=== PATIENT | male | born 1955 | race Caucasian/White ===

== ENCOUNTER 2020-11-22 03:29 | Inpatient (IN) | payer MEDICARE, BC ==
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
[2020-11-22 08:00] VITALS: BP 109/79
--- NOTE | 2020-11-22 08:00 | NUR ---
REC'D PT SITING IN RECLINING CHAIR. AWAKE AND ALERT TO PERSON ONLY. CALM AND COOPERATIVE WITH ASSESSMENT AT THIS TIME. PRESCRIBED MEDS PROVIDED ORDERED. MED COMPLIANT. PT CAN BECOME AGGRESSIVE WITH STAFF DURING CARE. REDIRECT AND REORIENT NEEDED. FALL PRECAUTIONS IN PLACE. WILL CPOC.
[2020-11-22 09:36] LABS: BILIRUBIN NEGATIVE (NEGATIVE); KETONE NEGATIVE (NEGATIVE); NITRITE NEGATIVE (NEGATIVE); UROBILINOGEN NORMAL mg/dL (< 2)
[2020-11-22 09:37] LABS: BACTERIA FEW HPF (NONE SEEN); SQUAMOUS EPITHELIAL 0-5 HPF (0-4); WHITE CELLS - URINE 0-5 HPF (0-1)
[2020-11-22 09:41] LABS: BASOPHILS 0.6 % (0-2); EOSINOPHILS 1.1 % (0-7); HEMATOCRIT 48.3 % (42.0-54.0); HEMOGLOBIN 15.9 g/dL (13.5-17.5); LYMPHOCYTES 15.1 % (15-50); MCH 29.4 pg (26.0-34.0); MCV 89.2 fL (80.0-100.0); MEAN PLATELET VOLUME 6.8 fL (7.4-10.4); MONOCYTES 5.7 % (2-11); NEUTROPHILS 77.5 % (40-80); PLATELET COUNT 248 10x3/uL (130-400); RBC 5.42 10x6/uL (4.20-6.10); RDW 13.5 % (11.5-14.5); WBC 10.7 10x3/uL (4.8-10.8)
[2020-11-22 09:44] LABS: ALBUMIN 3.7 g/dL (3.4-5.0); ALKALINE PHOSPHATASE 87 U/L (30-120); ALT (SGPT) 32 U/L (10-68); BILIRUBIN - TOTAL 0.49 mg/dL (0.2-1.3); CALC OSMOLALITY 286 mosm/kg (275-300); CARBON DIOXIDE 27.4 mmol/L (21.0-32.0); CHLORIDE - SERUM 104 mmol/L (98-107); CHOL - HDL RATIO 5.3 ratio (2.3-4.9); CHOLESTEROL, TOTAL 222 mg/dL (0-200); CREATININE - SERUM 1.2 mg/dL (0.6-1.3); GLUCOSE 133 mg/dL (74-106); HDL CHOLESTEROL 42 mg/dL (32-96); LDL CHOLESTEROL 146 mg/dL (0-100); LDL-HDL RATIO 3.5 ratio (1.5-3.5); POTASSIUM - SERUM 3.8 mmol/L (3.5-5.1); PROTEIN - SERUM 7.7 g/dL (6.4-8.2); SODIUM 142 mmol/L (136-145); THYROID STIMULATING HORMONE 6.76 uIU/mL (0.36-3.74); TRIGLYCERIDE 174 mg/dL (30-200); UREA NITROGEN 18 mg/dL (7-18); eGFR NON AFRICAN AMERICAN 64 mL/min (90-120)
[2020-11-22] MEDS ORDERED: DONEPEZIL HCL10 MG PO (10:17)
[2020-11-22] MEDS ORDERED: ELIQUIS2.5 MG PO (10:17)
[2020-11-22] MEDS ORDERED: ZOLOFT100 MG PO (10:17)
[2020-11-22] MEDS ORDERED: FLOMAX0.4 MG PO (10:18)
[2020-11-22] MEDS ORDERED: NORVASC2.5 MG PO (10:18)
[2020-11-22] MEDS ORDERED: XANAX0.5 MG PO (10:18)
[2020-11-22] MEDS ORDERED: KEPPRA250 MG PO (10:21)
[2020-11-22] MEDS ORDERED: MACROBID100 MG PO (10:22)
[2020-11-22 15:59] VITALS: BMI 35.4
[2020-11-22 18:13] VITALS: BP 109/79; Wt 111.4 kg
[2020-11-22 20:00] VITALS: BP 133/94
--- NOTE | 2020-11-22 20:16 | NUR ---
RECEIVED IN HALLWAY. SITTING IN A CHAIR WITH PEERS AT HIS SIDE. RESISTANT TO CARE AT TIMES. REFUSED MOST OF HIS VITAL SIGNS. NO SIGNS OF AGGRESSION. REDIRECT AND REORIENT NEEDED. CONTINUES TO SIT IN HALLWAY WITH PEERS. CONTINUE PLAN OF CARE.
[2020-11-23 07:15] LABS: RAPID PLASMA REAGIN Non Reactive (Non Reactive)
--- NOTE | 2020-11-23 08:00 | NUR ---
REC'D SITTING IN RECLINING CHAIR. AWAKE AND ALERT TO PERSON ONLY. CALM AND COOPERATIVE WITH ASSESSMENT, PRESCRIBED MEDS PROVIDED ORDERED. MED COMPLAINT. PT CAN BECOME AGGRESSIVE WITH ALD'S. REDIRECT AND REORIENT NEEDED. FALL PRECAUTIONS IN PLACE FOR SAFETY. WILL CPOC.
[2020-11-23 08:02] VITALS: BP 117/66
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
[2020-11-23 14:13] LABS: T4 THYROXIN - FREE 1.2 ng/dL (0.76-1.46)
[2020-11-23 20:00] VITALS: BP 140/75
--- NOTE | 2020-11-23 20:12 | NUR ---
RECEIVED IN DAYROOM. SITTING IN A CHAIR WITH PEERS AT HIS SIDE. CALM AND COOPERATIVE WITH CARE AND ASSESSMENT. VERY CONFUSED NO SIGNS OF AGGRESSION. REDIRECT AND REORIENT NEEDED. CONTINUES TO SIT CALMLY IN DAYROOM. CONTINUE PLAN OF CARE.
[2020-11-24 08:00] VITALS: BP 114/82
--- NOTE | 2020-11-24 08:36 | NUR ---
REC'D PT SITTING IN RECLINING CHAIR BY THE NURSES STATION. AWAKE AND ALERT TO PERSON ONLY. CALM AND COOPERATIVE WITH ASSESSMENT AT THSI TIME. CONFUSION NOTED. PT IS RESTLESS AT TIMES. PT CAN BECOME AGGRESSIVE WITH CARE. PT ATTEMPTS TO STAND UNASSISTED AT TIMES. REDIRECT AND REORIENT NEEDED. FALL PRECAUTIONS IN PLACE. WILL CPOC.
--- NOTE | 2020-11-24 14:02 | PN ---
PATIENT:SOPHIA RIVERA MEDICAL RECORD: [id number] LOCATION:KATHRYN Llamas112 ADMISSION DATE: 11/22/20 PROGRESS NOTE DATE OF SERVICE: 11/23/2020 SUBJECTIVE: The patient's case was discussed with staff. He has no new complaint. OBJECTIVE: The patient is disorganized with poor insight about his situation. He is only oriented to person and has not been aggressive today. ASSESSMENT: Dementia. PLAN: Brief supportive and educational interventions were made. The patient will be maintained on current medications, which I have reviewed. In addition to these medications, he will be treated with Namenda at a dose of 5 mg twice daily. TRANSINT:[id number] Voice Confirmation ID: [id number] DOCUMENT ID: [id number] TALHA MCKINLEY MD at 1402 CC: [id number] DICTATION DATE: 11/23/20 1552 STEEPLE JACK: 11/24/20 0038 ADM IN [place] [id number] [place] [id number]
--- NOTE | 2020-11-24 14:48 | NUR ---
Nutrition Re-Assessment Diet: Regular PO intake: ~73% average x last 6 meals Last BM: 11/24/20 Wt: 254.6# (11/22/20) Meds noted: probiotics, macrobid Labs reviewed Patient continues to appear to not be at nutrition risk at this time. Please consult dietitian if further MNT is medically indicated and/or desired by MD. Recommendations/Interventions: -Recommend continue current diet. Will continue to honor food preferences. -RD will continue to monitor PO intake and wt trend. -RD will follow-up within 7 days.
[2020-11-24 20:00] VITALS: BP 121/79
--- NOTE | 2020-11-24 21:44 | NUR ---
PT IS ALERT AND ORIENTED TO SELF ONLY. RECEIVED IN THE HALLWAY SITTING IN A CHAIR. VERY SOFT SPOKEN. DIFFICULTY FOLLOWING SIMPLE COMMANDS. COMPLIANT WITH ALL MEDICATIONS. NO AGGRESSION NOTED. ASSISTED TO BED. MONITOR FOR SAFETY.
--- NOTE | 2020-11-25 15:17 | NUR ---
Rec'd patient this am lying in bed. He is a/o but very confused to person. He is med compliant and took meds whole. He has sat and stared at the wall or the floor. He appears to be having active hallucinations or delusions. He does occ. attempt to converse with the other patients. He is directable and redirectiable so far this shift. He has some agitation in he feels pressure with completing an ADL or completeing a task.
--- NOTE | 2020-11-25 19:52 | NUR ---
RECEIVED WALKING IN HALWAY. VERY CONFUSED. DIFFICULT WITH DIRECTION. CALM AND COOPERATIVE WITH CARE AND ASSESSMENT. NO SIGNS OF AGGRESSION. REDIERCT AND REORIENT NEEDED. SITTING CALMLY IN HALLWAY AT THIS TIME. CONTINUE PLAN OF CARE.
[2020-11-25 20:00] VITALS: BP 113/77
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
--- NOTE | 2020-11-26 17:56 | NUR ---
PT CONTS TO PACE. ALERT TO SELF ONLY. CONFUSED. NO INSIGHT NOTED. REDIRECT AND REORIENT NEEDED. PT IS DIFFICULT TO REDIRECT. PT BECOMES AGITATED QUICKLY WITH ADLS. NO COMBATIVE BEHAVIOR NOTED. PT DOES NOT UNDERSTAND SIMPLE COMMANDS DUE TO LOW FUNCTIONING ABILITY. COMPLIANT WITH MEDS, VITALS AND ASSESSMENTS. CAN NOT MAKE NEEDS KNOWN. WANDERS. WILL CONT PLAN OF CARE.
--- NOTE | 2020-11-26 19:32 | NUR ---
RECEIVED IN HALLWAY. PACING UNIT. VERY CONFUSED. CALM AND COOPERATIVE WITH CARE AND ASSESSMENT. NO SIGNS OF AGGRESSION. DIFFICULT TO REDIRECT . CAN NOT UNDERSTAND SIMPLE COMMANDS. REDIRECT AND REORIENT NEEDED. CONTINUES TO WALK AROUND IN HALLWAY. CONTINUE PLAN OF CARE.
[2020-11-26 20:00] VITALS: BP 107/69
[2020-11-27 08:00] VITALS: BP 109/67
--- NOTE | 2020-11-27 10:03 | NUR ---
NURSE SPOKE WITH AT THIS TIME. PASSCODE GIVEN. NURSE EDUCATED ON NEW MEDICATION ORDERED. GEORGI FOR BEHAVIORS. SHE TOOK DOWN THE NAME OF MEDICATIONS. SHE ASKED IF STAFF WAS ABLE TO KEEP HIM DRY AT THIS TIME. NURSE STATED STAFF DOES Q 2 HR TOILETING WITH PT AND TAKE APPORACH SLOW. SHE STATED DURING VISITATION ON SUNDAY HE TOLD HER HAD TO GO TO THE RESTROOM BUT IT IS NOT OFTEN HE KNOWS. SO SHE WAS TAKING HIM AT HOME EVERY COUPLE OF HOURS. SHE STATED SHE DID NOT THINK SHE WOULD BE ABLE TO MAKE VISITATION TODAY AND TOMORROW HIS SISTER WAS GOING TO VISIT. IT WAS [address] AND SHE HAS TO GO TO [place] SUNDAY TO VISIT HER SON. SO SHE HAS ALOT ON HER PLATE. NURSE VERBALIZIED UNDERSTANDING. SHE STATED SHE WOULD CALL TO CHECK ON HIM AND TAKE GOOD CARE OF HIM. NURSE THANKED HER AND VOICED UNDERSTANDING.
--- NOTE | 2020-11-27 14:23 | NUR ---
pt paces. confused. alert to self only. difficulty to redirect. aggressive with care. labile moods noted. compliant with crushed meds, vitals and assessments. staff approches slowly adls. can not make needs known. cont to redirect pts behavior. will cont plan of care.
--- NOTE | 2020-11-27 14:49 | NUR ---
AGGRESSIVE WITH CARE, THREATENING HARM TO STAFF. TEARFULNESS AND INAPPROPRIATE LAUGHING NOTED, HALDOL 2 MG AND ATIVAN 0.5 MG ADMIN PO PER ORDERS.
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
[2020-11-27 20:23] VITALS: BP 139/91
--- NOTE | 2020-11-27 20:26 | NUR ---
prn semi-effective at this time.
--- NOTE | 2020-11-27 20:27 | NUR ---
pt pacing at this time. no agressive behaviors noted at this time. calm and pacing. wanders, labile. confused. alert to self only. difficult to redirect. pt does not understand verbal redirection. use hand ques to redirect pt. compliant with meds, vitals and assessments. will cont plan of care.
[2020-11-28 08:00] VITALS: BP 119/80
--- NOTE | 2020-11-28 08:12 | NUR ---
REC'D PT SITTING IN HALLWAY BY NURSES STATION. AWAKE AND ALERT TO PERSON ONLY. CALM AND COOEPRATIVE WITH ASSESSMENT AT THIS TIME. NO AGGRESSION NOTED. REDIRECT AND REORIENT NEEDED. PT IS CONFUSED AND WANDERS AT TIMES. PT HAS POOR REDIRECTION AT TIMES. PT CAN BECOME AGGRESSIVE WITH STAFF DURING CARE. FALL PRECAUTIONS IN PLACE. WILL CPOC.
--- NOTE | 2020-11-28 20:09 | NUR ---
RECEIVED IN HALLWAY. SITTING IN A RECLINER WITH PEERS AT HIS SIDE. VERY CONFUSED. CALM AND COOPERATIVE WITH CARE AND ASSESSMENT. DIFFICULT UNDERSTANDING SIMPLE DIRECTIONS. NO SIGNS OF AGGRESSION. REDIRECT AND REORIENT NEEDED. CONTINUE PLAN OF CARE.
[2020-11-28 20:36] VITALS: BP 105/66
[2020-11-29 08:00] VITALS: BP 140/82
--- NOTE | 2020-11-29 08:42 | NUR ---
REC'D PT SITTING IN HALLWAY IN CHAIR BY THE NURSES STATION. AWAKE AND ALERT TO PERSON ONLY. CALM AND COOPERATIVE WITH ASSESSMENT AT THIS TIME. PT IS QUIET. PT CAN BE SOCIAL WITH PEERS AT TIMES. PT MOOD IS PLEASANT. PT HAS LITTLE TO NO INSIGHT HIS SITUATION AT THIS TIME. REDIRECT AND REORIENT NEEDED. PT CAN BECOME AGITATED WITH REDIRECTION AND CARE. FALL PRECAUTION IN PLACE FOR SAFETY. WILL CPOC.
--- NOTE | 2020-11-29 15:46 | PN ---
PATIENT:SOPHIA RIVERA MEDICAL RECORD: [id number] LOCATION:[facility] Llamas112 ADMISSION DATE: 11/22/20 PROGRESS NOTE DATE OF SERVICE: 11/24/2020 This is an entry that is late. I neglected to dictate on this patient for November 24, so this dictation is for November 24. SUBJECTIVE: The patient's case was discussed with staff. He has no new complaint. OBJECTIVE: The patient is only oriented to person. He has had no hallucinations. He is eating and sleeping reasonably well. ASSESSMENT: Dementia. PLAN: Current medicines and therapies have been reviewed and will be maintained. Supportive and educational interventions were made. TRANSINT:[id number] Voice Confirmation ID: [id number] DOCUMENT ID: [id number] TALHA MCKINLEY MD at 1546 CC: [id number] DICTATION DATE: 11/25/201723 OB GYN: 11/25/20 191 ADM IN [facility] [address] [place] [address]
--- NOTE | 2020-11-29 15:46 | PN ---
PATIENT:SOPHIA RIVERA MEDICAL RECORD: [id number] LOCATION:[facility] Llamas112 ADMISSION DATE: 11/22/20 PROGRESS NOTE DATE OF SERVICE: 11/25/2020 SUBJECTIVE: The patient's case was discussed with staff. He has no new complaint. OBJECTIVE: The patient has shown significant improvement from admission. He is sleeping adequately and eating reasonably well. He is probably at or close to his baseline level of functioning. There has, however, been some moderate agitation when personal care is performed, but I am not going to medicate this. ASSESSMENT: Dementia. PLAN: Current medicines will be maintained. Unfortunately, this patient's dementia is advanced and this is particularly unfortunate given the fact that he is only 65 years old. TRANSINT:[id number] Voice Confirmation ID: [id number] DOCUMENT ID: [id number] TALHA MCKINLEY MD at 1546 CC: [id number] DICTATION DATE: 11/25/20 1726 DIRECTOR REGULATORY AGENCY: 11/25/20 1920 ADM IN [place] [id number] [place] [address]
[2020-11-29 20:00] VITALS: BP 97/64
--- NOTE | 2020-11-29 20:47 | NUR ---
RECEIVED IN DAYROOM. SITTING IN A CHAIR WITH PEERS AT HIS SIDE. VERY CONFUSED. RESISTANT TO CARE AT TIMES. NO SIGNS OF AGGRESSION. REDIRECT AND REORIENT NEEDED. SITTING CALMLY IN HALLWAY AT THIS TIME.
[2020-11-30 08:00] VITALS: BP 129/77
--- NOTE | 2020-11-30 14:41 | PN ---
PATIENT:SOPHIA RIVERA MEDICAL RECORD: [id number] LOCATION:[facility] Llamas112 ADMISSION DATE: 11/22/20 PROGRESS NOTE DATE OF SERVICE: 11/29/2020 SUBJECTIVE: The patient's case was discussed with staff. He has no new complaint. OBJECTIVE: The patient has limited insight about his situation. He is not eating well. ASSESSMENT: Dementia. PLAN: The patient is only oriented to person. His dementia is advanced and I am going to prescribe Megace to assist with his appetite stimulation. TRANSINT:[id number] Voice Confirmation ID: [id number] DOCUMENT ID: [id number] TALHA MCKINLEY MD at 1441 CC: [id number] DICTATION DATE: 11/29/20 170 AUTOMATIC PROFILE SANDER OPERATOR: 11/29/20 2320 ADM IN [place] [id number] [place] [address]
--- NOTE | 2020-11-30 16:00 | NUR ---
mesh worker spoke to patient's , Bree, to discuss referrals and needing to be made for patient. mesh worker stated ALEXANDRA paperwork was done and sent off to the state. mesh worker sent out referrals already to [facility] and rehab, they declined patient. mesh worker also sent referral per request of patient's to [facility] and rehab. Bree stated her first choice would be [facility] and referral was sent today. mesh worker answer questions about Medicaid and finances while stating the long term financial analysis manager will help her with financials. Bree voiced no other needs at this time.
--- NOTE | 2020-11-30 19:38 | NUR ---
RECEIVED IN HALLWAY OUTSIDE OF NURSES STATION. VERY CONFUSED. DIFFICULT WITH SIMPLE INSTRUCTIONS. CALM AND COOPERATIVE WITH CARE AND ASSESSMENT. NO SIGNS OF AGGRESSION. REDIRECT AND REORIENT NEEDED. CONTINUES TO SIT CALMLY IN HALLWAY. CONTINUE PLAN OF CARE.
[2020-11-30 20:00] VITALS: BP 126/62
[2020-12-01 08:00] VITALS: BP 96/54
--- NOTE | 2020-12-01 09:00 | NUR ---
STAFF 3X ASSIST PT OUT OF BED AT THIS TIME. STAFF SLOW APPROACH TO AVOID AGITATION WITH PERICARE. PT DOES NOT UNDERSTAND VERBAL INSTRUCTIONS. PT QUICKLY BECOMES ANGRY WTITH REDIRECTION IF NOT DONE SLOWLY. PT IS CONFUSED AND ALERT TO SELF ONLY. PT HAS NO INSIGHT NOTED. VERY POOR REDIRECTION. COMPLIANT WITH MEDS VITALS AND ASSESSMENTS. LOW COGNITIVE UNDERSTANDING NOTED. AMBULATES WITH ENCOURAGEMENT. CHAIR ALARM IN PLACE AND ACTIVE. WILL CONT PLAN OF CARE.
--- NOTE | 2020-12-01 15:35 | PN ---
PATIENT:SOPHIA RIVERA MEDICAL RECORD: [id number] LOCATION:[facility] Llamas112 ADMISSION DATE: 11/22/20 PROGRESS NOTE DATE OF SERVICE: 11/30/2020 SUBJECTIVE: The patient's case was discussed with staff. He has no new complaint. OBJECTIVE: The patient is in good behavioral control with limited insight about his situation. He tolerates his medicines well. ASSESSMENT: Dementia. PLAN: Current medicines have been reviewed and will be maintained. The patient's dementia is very advanced. He has responded well to treatment and can be returned to the senior living soon. TRANSINT:[id number] Voice Confirmation ID: [id number] DOCUMENT ID: [id number] TALHA MCKINLEY MD at 1535 CC: [id number] DICTATION DATE: 11/30/20 1557 SCRAPER HAND: 11/30/20 1703 ADM IN [facility] [address] [place] [id number]
--- NOTE | 2020-12-01 15:40 | NUR ---
Nutrition Re-Assessment Diet: Regular PO Intake: ~64% average x last 9 meals Last BM: 11/29/20 Wt: 251.6# (11/28/20); Admit Wt: 254# (11/22/20) Meds noted: Megace ES, abx, probiotics No new chem labs Patient continues to appear to not be at nutrition risk at this time. Please consult dietitian if further MNT is medically indicated and/or desired by MD. Recommendations/Interventions: -Recommend continue current diet. Will continue to honor food preferences. -RD will continue to monitor PO intake and wt trend [facility]. -RD will follow-up within 7 days.
--- NOTE | 2020-12-01 16:35 | NUR ---
Rec'd patient this am sitting up in a reclining w/c. He is med compliant and takes meds crushed and placed in foods. He is a/o times one to person. He has sat in group today but does not participated with the group. He is nondirectable or directable. He is confused and if he is pressed for any task he will mumble rude and inappropriate statements. He can easily become aggressive with care.
[2020-12-01 20:00] VITALS: BP 147/73
--- NOTE | 2020-12-02 02:57 | NUR ---
B)RECEIVED PATIENT SITTING OUTSIDE THE NURSE'S STATION. ORIENTED TO SELF ONLY. NOT INTERACTIVE WITH OTHERS. LABILE AND ALTERNATES BETWEEN ANGER AND DEFIANCE TO PARTICIPATING WHEN ASKED. WANTS TO BE INDEPENDENT AND DOES NOT WANT ASSISTANCE HOWEVER REQUIRES HELP WITH ADL'S. I)ADMINISTER MEDS AND MONITOR COMPLIANCE. REORIENT NEEDED. R)MED COMPLIANT. CRUSHED DUE TO PATIENT EITHER CHEWING THEM OR SPITTING THEM OUT. POOR REORIENTATION RELATED TO IMPAIRED ABILITY TO COMPREHEND, PROCESS AND RETAIN INFORMATION. P)CONTINUE POC AND PROVIDE SAFE ENVIRONMENT.
[2020-12-02 08:42] VITALS: BP 137/74
--- NOTE | 2020-12-02 14:20 | NUR ---
pt called this shift. passcode given. she wanted to know how pt was doing and if was going to call her this shift. nurse stated Dr. kirkland does have her number and nurse could inquire about a phone call. pt was eating at this time. staff conts to use slow actions to avoid scaring pt. she voiced understanding stating she understands its hard to place him, based on the anger. she stated she would attend visitation.
--- NOTE | 2020-12-02 14:48 | PN ---
PATIENT:SOPHIA RIVERA MEDICAL RECORD: [id number] LOCATION:[facility] ADMISSION DATE: 11/22/20 PROGRESS NOTE DATE OF SERVICE: 12/01/2020 SUBJECTIVE: The patient's case was discussed with staff. He has no new complaint. OBJECTIVE: The patient is in good behavioral control. He has limited insight about his condition. He is aggressive primarily with ADLs. He is sleeping well. ASSESSMENT: Dementia. PLAN: Current medicines have been reviewed and will be maintained. His long-term prognosis is guarded. I anticipate he can be transitioned out of the hospital and to the longterm soon. TRANSINT:[id number] Voice Confirmation ID: [id number] DOCUMENT ID: [id number] TALHA MCKINLEY MD at 1448 CC: [id number] DICTATION DATE: 12/01/20 1622 INSTRUCTIONAL TECHNOLOGY INSTRUCTOR: 12/01/20 1808 ADM IN [facility] [address] [place] [address]
--- NOTE | 2020-12-02 15:11 | NUR ---
Rec'd this am up in the hallway. He is med compliant and takes meds crushed in food. He is alert to when his name is called he will look at the caller. He is very quiet and withdrawn today. He sats by himself and converses rarely. He will occ. lash out at another patient if they are yelling or speaking in a high voice tone. He will usually state "you shut up". He has shown one episode of this behavior today.He said the statement and then looked the other directly and all was resolved. He sits with the group but does not participate.He usually directable.
[2020-12-02 20:00] VITALS: BP 127/67
--- NOTE | 2020-12-03 02:21 | NUR ---
B)RECEIVED PATIENT SITTING OUTSIDE THE NURSE'S STATION. ORIENTED TO SELF ONLY. WILL SPEAK A SINGLE RESPONSE HOWEVER DOES NOT INTERACT WITH STAFF OR PEERS. LABILE. PATIENT WILL LAUGH AT ONE THING AND THE NEXT TIME HE WILL GLARE ANGRILY AND SPEAK SOMETHING THAT IS INAUDIBLE. DOES NOT WANT ASSISTANCE AND WILL JERK AWAY OR REACH OUT IF TRYING TO GRAB A HOLD OF YOU. HAS A BETTER BEHAVIORAL RESPONSE TO CERTAIN STAFF MEMBERS. I)ADMINISTER MEDS AND MONITOR COMPLIANCE. REORIENT NEEDED. R)MED COMPLIANT. REQUIRES MEDS BE CRUSHED. HE WILL EITHER CHEW THEM OR WILL SPIT THEM OUT NOT BEING ABLE TO COMPREHEND THIS IS HIS MEDICINES AND HE NEEDS TO SWALLOW THEM. ACTS IF HIS SPACE IS BEING INVADED WHEN YOU ATTEMPT TO EXPLAIN SOMETHING OR TALK WITH HIM. P)CONTINUE POC AND PROVIDE SAFE ENVIRONMENT.
[2020-12-03 08:00] VITALS: BP 151/96
--- NOTE | 2020-12-03 13:38 | PN ---
PATIENT:SOPHIA RIVERA MEDICAL RECORD: [id number] LOCATION:K[facility]HRYN [facility]er[facility]112 ADMISSION DATE: 11/22/20 PROGRESS NOTE DATE OF SERVICE: 12/02/2020 SUBJECTIVE: The patient's case was discussed with staff. He has no new complaint. OBJECTIVE: The patient's dementia is advanced. He has almost no insight about his situation. ASSESSMENT: Dementia. PLAN: Current medicines have been reviewed and will be maintained. Long-term prognosis is guarded. TRANSINT:[id number] Voice Confirmation ID: [id number] DOCUMENT ID: [id number] TALHA MCKINLEY MD at 1338 CC: [id number] DICTATION DATE: 12/02/20 165 BATCH RECORDS CLERK: 12/02/201947 ADM IN [place] [id number] [place] [address]
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
--- NOTE | 2020-12-03 15:57 | NUR ---
Rec'd patient this am in the hallway sitting in a reclining w/c. She is a/o to person such as he will open his eyes and look at you when his name is called. He is med compliant and takes meds crushed in food. She will sit with the group but participates little. He is not directable or redirectable. He was given IM Ativan and Haldol when he became combative and aggressive to staff when a shower was attempted. He has a pressure sensitive pad and it is present and functioning in his reclining wc.
[2020-12-03 20:00] VITALS: BP 143/73
--- NOTE | 2020-12-03 21:12 | NUR ---
PT IS ALERT AND ORIENTED TO SELF ONLY. POOR INSIGHT INTO HIS SITUATION. RECEIVED IN A GERICHAIR IN THE HALLWAY OUTSIDE THE NURSES STATION. RESISTANT TO REDIRECTION. MISINTERPRETS ANY NON VERBAL COMMUNICATION. VERY CONFUSED. COMPLIANT WITH ALL MEDICATIONS. MONITOR FOR SAFETY.
--- NOTE | 2020-12-04 08:37 | NUR ---
AGGRESSIVE WITH STAFF,YELLING OUT.WILL NOT REDIRECT.ATIVAN 0.5MG AND HALDOL 2MG IM TO RT DELTOID GIVEN PER .
--- NOTE | 2020-12-04 09:15 | NUR ---
GOOD RESPONSE TO ATIVAN AND HALDOL.IS ORIENTED TO SELF ONLY.COMPLIANT WITH STAFF AND MEDS.WILL CONTINUE WITH CURRENT PLAN OF CARE,MONITOR FOR CHANGES AND SAFETY.
[2020-12-04 20:48] VITALS: BP 131/91
--- NOTE | 2020-12-04 22:34 | NUR ---
PT IS ALERT AND ORIENTED TO SELF ONLY. POOR INSIGHT INTO HIS SITUATION. RECEIVED IN THE HALLWAY IN A GERICHAIR. MISINTERPRETS. AGGITATED WITH ADL'S. COMPLIANT WITH ALL MEDICATIONS. RESISTANT TO REDIRECTION. BED ALARM ON AND WORKING. MONITOR FOR SAFETY.
[2020-12-05 10:31] VITALS: BP 137/82
--- NOTE | 2020-12-05 14:30 | PN ---
PATIENT:SOPHIA RIVERA MEDICAL RECORD: [id number] LOCATION:[facility] ADMISSION DATE: 11/22/20 PROGRESS NOTE DATE OF SERVICE: 12/04/2020 SUBJECTIVE: The patient's case was discussed with staff. He has no new complaint. OBJECTIVE: The patient is disorganized with poor insight about his situation. He was given p.r.n. medication this morning because of agitation. I view this as an isolated event and I am not going to make medication changes based on this one event, especially with it being the only one in several days. TRANSINT:[id number] Voice Confirmation ID: [id number] DOCUMENT ID: [id number] TALHA MCKINLEY MD at 1430 CC: [id number] DICTATION DATE: 12/04/20 1350 RUBBER SPLICER: 12/04/20 1437 ADM IN [place] [id number] [place] [address]
--- NOTE | 2020-12-05 19:02 | NUR ---
RECEIVED THIS AM IN [facility] CHAIR.IS ORIENTED TO SELF ONLY.IS COMPLIANT WITH MEDICATIONS.DIFFICULT TO REDIRECT AT TIMES.AGGITATED WITH ADL'S.WILL CONTINUE WITH CURRENT PLAN OF CARE.MONITOR FOR CHANGES AND SAFETY.
--- NOTE | 2020-12-05 21:21 | NUR ---
RECEIVED IN HALLWAY OUTSIDE OF NURSES STATION. VERY CONFUSED. DIFFICULTY UNDERSTANDING SIMPLE DIRECTIONS. CALM AND COOPERATIVE WITH CARE AND ASSESSMENT. NO SIGNS OF AGGRESSION. REDIRECT AND REORIENT NEEDED. RESTING IN BED WITH EYES OPEN AT THIS TIME. CONTINUE PLAN OF CARE.
[2020-12-05 23:44] VITALS: BP 149/79
[2020-12-06 08:00] VITALS: BP 137/79
--- NOTE | 2020-12-06 08:00 | NUR ---
Received patient sitting in reclining chair in hallway by the nurses station. Calm and cooperative with assessment at this time. No behaviors noted. Redirect and reorient as needed. Precautions in place for safety. Will continue plan of care.
--- NOTE | 2020-12-06 12:07 | NUR ---
NUTRITION FOLLOW UP: COMMENTS: Patient eating well for past 9 meals. Patient needs assistance with meals and needs to be fed per MD note. No new labs recorded since 11/22. DIET: Regular Diet PO INTAKE: 85% avg for last 9 meals; 66% avg for last 3 snacks WEIGHT: 12/05-170 lbs; 12/01-167 lbs BM: x 1 on 12/06 SIG MEDS: Megace, Probiotic, Lipitor SIG LABS: No new labs recorded since 11/22 RECOMMENDATIONS: Continue Regular diet as tolerated Offer nutritional supplements if PO intake avg becomes <50% Continue Megace appetite stimulant Continue assistance with all meals/snacks RD to re-assess patient on 12/08
--- NOTE | 2020-12-06 13:46 | PN ---
PATIENT:SOPHIA RIVERA MEDICAL RECORD: [id number] LOCATION:[facility] ADMISSION DATE: 11/22/20 PROGRESS NOTE DATE OF SERVICE: 12/05/2020 SUBJECTIVE: The patient's case was discussed with staff. He has no new complaint. OBJECTIVE: The patient denies intent to harm himself or others. He is participating in treatment, but only oriented to person. He is sleeping and eating very well. ASSESSMENT: Dementia. PLAN: Current medicines have been reviewed and will be maintained. I anticipate he can be transitioned out of the hospital this week. TRANSINT:[id number] Voice Confirmation ID: [id number] DOCUMENT ID: [id number] TALHA MCKNILEY MD at 1346 CC: [id number] DICTATION DATE: 12/05/20 1410 CAN STACKER: 12/05/20 193 ADM IN [facility] [address] [place] [id number]
[2020-12-06 20:01] VITALS: BP 139/73
--- NOTE | 2020-12-06 21:01 | NUR ---
RECEIVED IN HALLWAY. SITTING IN A CHAIR WITH PEERS AT HIS SIDE. VERY CONFUSED. CALM AND COOPERATIVE WITH CARE AND ASSESSMENT. DIFFICULTY UNDERSTANDING SIMPLE TASK. NO SIGNS OF AGGRESSION. REDIRECT AND REORIENT NEEDED. CONTINUES TO SIT QUIETLY IN HALLWAY. CONTINUE PLAN OF CARE.
[2020-12-07 08:00] VITALS: BP 141/77
--- NOTE | 2020-12-07 08:41 | NUR ---
SITTING IN HALLWAY BY NURSES STATION. PATIENT IS AWAKE AND ALERT TO PERSON ONLY AT THIS TIME. PATIENT IS CONFUSED. PATIENT HAS LITTLE INSIGHT INTO HIS SITUATION AT THIS TIME. PATIENT IS RESTLESS AT THIS TIME. PATIENT HAS DIFFICULTY WITH VERBAL INSTRUCTIONS. PATIENT HAS POOR COMPREHENSION AT THIS TIME. REDIRECT AND REORIENT NEEDED. FALL PRECAUTIONS IN PLACE FOR SAFETY. WILL CONTINUE PLAN OF CARE.
--- NOTE | 2020-12-07 14:57 | PN ---
PATIENT:SOPHIA RIVERA MEDICAL RECORD: [id number] LOCATION:[facility] ADMISSION DATE: 11/22/20 PROGRESS NOTE DATE OF SERVICE: 12/06/2020 SUBJECTIVE: The patient's case was discussed with staff. He has no new complaint. OBJECTIVE: The patient denies intent to harm himself or others. He is participating in treatment. He is only oriented to person. ASSESSMENT: Dementia. PLAN: The patient is going to be referred to a half-way. His is looking for placement and she is being assisted by our social sciences chair. His long-term prognosis is guarded and he can be transitioned to the half-way as soon as placement is arranged. TRANSINT:[id number] Voice Confirmation ID: [id number] DOCUMENT ID: [id number] TALHA MCKINLEY MD at 1457 CC: [id number] DICTATION DATE: 12/06/20 1602 SHALLOT CLEANER: 12/06/20 1611 ADM IN [place] [id number] [place] [id number]
--- NOTE | 2020-12-07 16:30 | NUR ---
DAYCARE PROVIDER, SANTOS, GAVE UPDATE ON PATIENT. LABS AND MEDICATIONS ALSO REVIEWED WITH PATIENT'S .
[2020-12-07 20:00] VITALS: BP 130/73
--- NOTE | 2020-12-07 20:22 | NUR ---
RECEIVED IN DAYROOM. SITTING AT TABLE WITH PEERS. CONFUSED. CALM AND COOPERATIVE WITH CARE AND ASSESSMENT. NO SIGNS OF AGGRESSION. REDIRECT AND REORIENT NEEDED. CONTINUES TO SIT CALMLY AT TABLE. CONTINUE PLAN OF CARE.
[2020-12-08 08:33] VITALS: BP 113/73
--- NOTE | 2020-12-08 14:26 | NUR ---
Nutrition Reassessment/Follow-up: PO intake improved. Diet: Regular PO intake: 80% avg x 9 meals (12/05-12/07) Wt: 250# (12/06); 251.6# (11/28); 254.6# (11/22) Last BM: 12/07 No new labs Meds noted: BrannonPete Pt continues to appear to not be at nutrition risk at this time. Please consult RD if further MNT is medically indicated and/or desired by MD. Nutrition Intervention/Recommendations: -Encourage PO intake and honor food preferences. -Monitor wt. -RD will follow up within 7 days.
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
--- NOTE | 2020-12-08 15:53 | PN ---
PATIENT:SOPHIA RIVERA MEDICAL RECORD: [id number] LOCATION:[facility] ADMISSION DATE: 11/22/20 PROGRESS NOTE DATE OF SERVICE: 12/07/2020 SUBJECTIVE: The patient's case was discussed with staff. He has no new complaint. OBJECTIVE: The patient is in good behavioral control and oriented to person only. He is eating and sleeping well. He has had some irritability, but it is primarily related to personal care. ASSESSMENT: Dementia. PLAN: The patient has reached maximum hospital benefit and will be transitioned out of the hospital as soon as placement is arranged. TRANSINT:[id number] Voice Confirmation ID: [id number] DOCUMENT ID: [id number] TALHA MCKINLEY MD at 1553 CC: [id number] DICTATION DATE: 12/07/20 170 ASSOCIATE PROFESSOR OF GEOGRAPHY: 12/07/20 1857 ADM IN [facility] [address] [place] [address]
--- NOTE | 2020-12-08 16:59 | PN ---
PATIENT:SOPHIA RIVERA MEDICAL RECORD: [id number] LOCATION:[facility] ADMISSION DATE: 11/22/20 PROGRESS NOTE DATE OF SERVICE: 12/08/2020 SUBJECTIVE: The patient's case was discussed with staff. He has no new complaint. OBJECTIVE: The patient is in good behavioral control with limited insight about his situation. ASSESSMENT: Dementia. PLAN: Current medicines have been reviewed. The patient is ready for discharge, but there are some complications with finding a assisted that will accept him and then there are some financial issues need to be settled. Once these are worked out, I am ready for him to be discharged. TRANSINT:[id number] Voice Confirmation ID: [id number] DOCUMENT ID: [id number] TALHA MCKINLEY MD at 1659 CC: [id number] DICTATION DATE: 12/08/20 1623 AS400 PROGRAMMER: 12/08/20 1630 ADM IN [place] [id number] [place] [id number]
[2020-12-08 20:00] VITALS: BP 145/67
--- NOTE | 2020-12-08 22:01 | NUR ---
PT IS ALERT AND ORIENTED TO SELF ONLY. RECEIVED IN HIS BED RESTING CALMLY. SOME YELLING WITH ADL'S. EASY TO REDIRECT. COMPLIANT WITH ALL MEDICATIONS. BED ALARM ON AND WORKING. MONITOR FOR SAFETY.
[2020-12-09] MEDS ORDERED: LIPITOR20 MG PO (09:59)
[2020-12-09] MEDS ORDERED: NAMENDA5 MG PO (09:59)
[2020-12-09] MEDS ORDERED: TRAZODONE HCL50 MG PO (10:00)
[2020-12-09] MEDS ORDERED: GEODON20 MG PO (10:00)
[2020-12-09] MEDS ORDERED: Megace ES [CHEMO] PO (10:01)
[2020-12-09] MEDS ORDERED: FLORAJEN DIGES1 EACH PO (10:01)
[2020-12-09 10:16] VITALS: BP 109/70
--- NOTE | 2020-12-09 14:30 | NUR ---
RECEIVED THIS AM SITTING IN RECLINER AT NURSES STATION.IS ORIENTED ONLY TO SELF.VERY CONFUSED.IS COMPLIANT WITH STAFF AND MEDS.MEDS CRUSHED AND TAKEN IN PUDDING.NO NEGATIVE BEHAVIORS OBSERVED.WILL CONTINUE WITH CURRENT PLAN OF CARE,MONITOR FOR CHANGES AND SAFETY.
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
--- NOTE | 2020-12-09 16:54 | NUR ---
STATED PT WAS ACCEPTED TO NH VERY QUICK AND IM READY FOR HIM TO LEAVE. ICE CREAM GIVEN PER REQUEST. PT WAS SMILING AND LAUGHING.
[2020-12-09 20:00] VITALS: BP 140/83
--- NOTE | 2020-12-09 22:47 | NUR ---
PT IS ALERT AND ORIENTED TO SELF. RECEIVED IN HALLWAY. PT BECOMES VERY DISTRESSED BY THE DARKER TILES ON THE FLOOR AND ATTEMPTS TO STEP OVER THEM AND RELATES HE IS FEARFUL. VERY UNSTEADY. COMPLIANT WITH ALL MEDICATIONS. PROVIDED HS SNACK. MONITOR FOR SAFETY.
--- NOTE | 2020-12-10 12:50 | NUR ---
PT SITTING AT TABLE EATING AT THIS TIME. PT IS CALM AND COOPERATIVE WITH STAFF. COMPLIANT WITH MEDS, VITALS AND ASSESSMENTS. REQUIRES ASSISTANCE WITH ADLS. CRUSH MEDS. ALERT TO SELF ONLY. REDIRECT AND REORIENT NEEDED. CHAIR ALARM IN PLACE AND ACTIVE. WILL CONT PLAN OF CARE.
--- NOTE | 2020-12-10 13:01 | NUR ---
PT D/C AT THIS TIME TO [facility]. PT IS CALM AND TOLERATED D/C WELL. GRINNING. ALL PERSONAL BELONGINGS SENT WITH PT. PAPERWORK FAXED TO FACILITY AND PAPER COPY SENT WITH PT. PT TRANSFERRED TO D/C W/C. MASK DONNED. TO CALL TO INFORM OF D/C.
--- NOTE | 2020-12-10 13:32 | NUR ---
drug department worker spoke to patient's and alerted of patient leaving the unit for discharge to [facility]. Bree stated that she appreciates the unit and all staff and she did not have one bad experience on the floor through this entire time patient has been here. She wanted to express gratitude for the care and the love her received on the unit. No other needs were voiced at this time.
[2020-12-10 13:37] VITALS: BP 157/101
--- NOTE | 2020-12-10 13:40 | NUR ---
REPORT CALLED TO TELMA AT [facility]. NURSE GAVE OVERVIEW AND HISTORY AT THIS TIME. CODE STATUS, REDIRECT TECHINQUES FOR SUCCESSFUL REDIRECTION. LAST SET OF VITALS GIVEN WELL.
== END 2020-12-10 13:05 | DRG 57 ==
LOC: D.PSYCH 03:29
PROVIDERS: Family Medicine; ADMIT Psychiatry & Neurology Psychiatry; ATTEND Psychiatry & Neurology Psychiatry
DX: G30.1 Alzheimer's disease with late onset (principal); F02.81 Dementia in other diseases classified elsewhere, unspecified severity, with behavioral disturbance; N39.0 Urinary tract infection, site not specified; I27.82 Chronic pulmonary embolism; F34.1 Dysthymic disorder; I10 Essential (primary) hypertension; G40.909 Epilepsy, unspecified, not intractable, without status epilepticus; N39.43 Post-void dribbling; N39.3 Stress incontinence (female) (male); E78.5 Hyperlipidemia, unspecified; E78.00 Pure hypercholesterolemia, unspecified; N40.1 Benign prostatic hyperplasia with lower urinary tract symptoms